=== PATIENT | female | born 1995 | race Two or more races ===

== ENCOUNTER 2019-09-03 21:55 | Observation (INO) | payer OTHER ==
[2019-09-03] MEDS ORDERED: SODIUM CHLORIDE 1,000 ML IV STA (22:37)
[2019-09-03] MEDS ORDERED: ONDANSETRON 4 MG/2 ML VIAL IVPUSH ONE (22:38)
[2019-09-03] MEDS ORDERED: cloNIDine HCL 0.1 MG TABLET PO ONE (22:40)
[2019-09-03] MEDS ORDERED: cloNIDine HCL 0.1 MG TABLET ONE (23:22)
[2019-09-04] MEDS ORDERED: cloNIDine-TTS 0.1 MG/24 HRS PATCH.TDWK TD ONE (00:40)
[2019-09-04] MEDS ORDERED: ACETAMINOPHEN 1000 MG/100 ML VIAL (NON FORMULARY) IVPB ONE (00:49)
[2019-09-04 01:02] LABS: BASO % 0.2 % (0-2.0); HEMATOCRIT 46.5 % (32.4-45.2); HEMOGLOBIN 15.6 GM/dL (10.7-15.3); LYMPH % 10.4 % (8-40); MCH 28.3 pg (25.7-33.7); MCHC 33.5 g/dl (32.0-36.0); MEAN CELL VOLUME 84.5 fl (80-96); MEAN PLT VOLUME 9.9 fl (7.5-11.1); MONO % 4.2 % (3.8-10.2); NEUT % 85.2 % (42.8-82.8); PLATELET COUNT 281 K/MM3 (134-434); RBC 5.51 M/mm3 (3.60-5.2); RDW 14.8 % (11.6-15.6); WHITE BLOOD COUNT 10.2 K/mm3 (4.0-10.0)
[2019-09-04 01:37] LABS: ALBUMIN 4.9 g/dl (3.4-5.0); BILIRUBIN,TOTAL 0.7 mg/dL (0.2-1); BLOOD UREA NITROGEN 5.6 mg/dL (7-18); CREATININE 0.8 mg/dL (0.55-1.3); POTASSIUM 3.3 mmol/L (3.5-5.1); TOT PROT 9.5 g/dl (6.4-8.2)
[2019-09-04] MEDS ORDERED: POTASSIUM CHLORIDE TABS 20 MEQ TABLET.ER (FP) PO ONE ×5 (03:27→17:53)
[2019-09-04] MEDS ORDERED: LABETALOL HCL 200 MG TABLET (FP) PO ONE (04:32)
[2019-09-04] MEDS ORDERED: hydrALAZINE HCL 20 MG/ML VIAL IVPUSH ONE (04:38)
[2019-09-04] MEDS ORDERED: hydrALAZINE HCL 20 MG/ML VIAL ONE (05:31)
[2019-09-04] MEDS ORDERED: METOCLOPRAMIDE HCL INJECTION 10 MG/2 ML VIAL IVPUSH ONE (06:25)
[2019-09-04] MEDS ORDERED: METOCLOPRAMIDE HCL INJECTION 10 MG/2 ML VIAL ONE (06:26)
[2019-09-04 06:37] LABS: BASO % 0.2 % (0-2.0); HEMATOCRIT 41.8 % (32.4-45.2); HEMOGLOBIN 13.9 GM/dL (10.7-15.3); LYMPH % 10.2 % (8-40); MCHC 33.3 g/dl (32.0-36.0); MEAN CELL VOLUME 84.1 fl (80-96); MEAN PLT VOLUME 9.4 fl (7.5-11.1); MONO % 6.9 % (3.8-10.2); NEUT % 82.7 % (42.8-82.8); PLATELET COUNT 262 K/MM3 (134-434); RBC 4.97 M/mm3 (3.60-5.2); RDW 14.8 % (11.6-15.6); WHITE BLOOD COUNT 11.3 K/mm3 (4.0-10.0)
[2019-09-04 07:35] LABS: ALBUMIN 4.4 g/dl (3.4-5.0); ALK PHOS 112 U/L (45-117); ANION GAP 12 MMOL/L (8-16); BILIRUBIN,TOTAL 0.7 mg/dL (0.2-1); BLOOD UREA NITROGEN 6.1 mg/dL (7-18); CALCIUM 9.2 mg/dL (8.5-10.1); CHLORIDE 98 mmol/L (98-107); CHOLESTEROL 201 mg/dL (50-200); CO2 23 mmol/L (21-32); CREATININE 0.8 mg/dL (0.55-1.3); GLUCOSE,RANDOM 151 mg/dL (74-106); HDL CHOLESTEROL 80 mg/dL (40-60); LDL CHOLESTEROL (ONLY SJRH) 110 mg/dL (5-100); MAGNESIUM 2.1 mg/dL (1.8-2.4); PHOSPHOROUS 3.3 mg/dL (2.5-4.9); POTASSIUM 3.5 mmol/L (3.5-5.1); SGOT/AST 12 U/L (15-37); SGPT/ALT 19 U/L (13-61); SODIUM 133 mmol/L (136-145); TOT PROT 8.1 g/dl (6.4-8.2); TRIGLYCERIDES 62 mg/dL (0-150)
[2019-09-04] MEDS ORDERED: KCL 10 MEQ IVPB 10 MEQ/100 ML INFUS.BAG IVPB ONE (08:13)
[2019-09-04] MEDS: KCL 10 MEQ IVPB 10 MEQ/100 ML INFUS.BAG IVPB SCH ×3 (08:20→10:00)
[2019-09-04] MEDS ORDERED: cloNIDine HCL 0.1 MG TABLET PO PRN (10:00)
[2019-09-04] MEDS ORDERED: HYDROCHLOROTHIAZIDE 12.5 MG CAPSULE (FP) PO SCH (10:00)
[2019-09-04] MEDS ORDERED: cloNIDine-TTS 0.3 MG /24 HRS PATCH.TDWK TD SCH (10:00)
[2019-09-04] MEDS ORDERED: METHADONE HCL 10 MG TABLET PO ONE ×2 (10:00→17:23)
[2019-09-04] MEDS ORDERED: METHADONE HCL 10 MG TABLET ONE ×2 (10:15→18:31)
[2019-09-04] MEDS ORDERED: FOLIC ACID 1 MG TABLET (FP) ONE (10:53)
[2019-09-04] MEDS ORDERED: THIAMINE HCL 100 MG TABLET (FP) ONE (10:53)
[2019-09-04] MEDS ORDERED: ENOXAPARIN NA (PORCINE) 40 MG/0.4 ML DISP.SYRIN SQ ONE (10:53)
[2019-09-04] MEDS: ENOXAPARIN NA (PORCINE) 40 MG/0.4 ML DISP.SYRIN SQ SCH (11:02)
[2019-09-04] MEDS: FOLIC ACID 1 MG TABLET (FP) PO SCH (11:02)
[2019-09-04] MEDS: THIAMINE HCL 100 MG TABLET (FP) PO SCH (11:02)
[2019-09-04] MEDS: MULTIVITAMINS (DAILY MVI) TABLET (FP) PO SCH (11:02)
[2019-09-04 12:55] LABS: HIV INTERPRETATION NEGATIVE (NEGATIVE)
[2019-09-04] MEDS ORDERED: amLODIPine BESYLATE 5 MG TABLET (FP) ONE (14:25)
[2019-09-04] MEDS ORDERED: ACETAMINOPHEN 325 MG TABLET (FP) ONE (14:26)
[2019-09-04] MEDS: amLODIPine BESYLATE 10 MG TABLET (FP) PO SCH (14:31)
[2019-09-04] MEDS: ACETAMINOPHEN 500 MG TABLET (FP) PO PRN (14:31)
[2019-09-04] MEDS ORDERED: hydrALAZINE HCL 10 MG TABLET PO ONE (18:22)
[2019-09-04] MEDS ORDERED: FAMOTIDINE 20 MG TABLET ONE (18:34)
[2019-09-04] MEDS: FAMOTIDINE 20 MG TABLET PO PRN (18:38)
[2019-09-04] MEDS ORDERED: hydrALAZINE HCL 10 MG TABLET PO SCH (22:00)
[2019-09-04] MEDS ORDERED: LISINOPRIL 20 MG TABLET PO SCH (22:00)
[2019-09-04] MEDS ORDERED: LISINOPRIL 20 MG TABLET ONE (22:07)
[2019-09-05] MEDS: FAMOTIDINE 20 MG TABLET PO PRN (02:29)
[2019-09-05] MEDS: ACETAMINOPHEN 500 MG TABLET (FP) PO PRN ×2 (02:29→17:56)
[2019-09-05] MEDS ORDERED: ACETAMINOPHEN 325 MG TABLET (FP) ONE (02:30)
[2019-09-05] MEDS ORDERED: FAMOTIDINE 20 MG TABLET ONE (02:31)
[2019-09-05] MEDS ORDERED: MAGNESIUM SULF 50% (8.12 MEQ/2 ML-1 GM VIAL) IVPB ONE (06:04)
[2019-09-05] MEDS: ONDANSETRON 4 MG/2 ML VIAL IVPUSH PRN ×2 (06:39→22:50)
[2019-09-05] MEDS: hydrALAZINE HCL 10 MG TABLET PO SCH ×2 (08:14→14:32)
[2019-09-05] MEDS ORDERED: METHADONE HCL 10 MG TABLET ONE ×2 (09:14→14:30)
[2019-09-05] MEDS ORDERED: METHADONE HCL 5 MG TABLET ONE (09:14)
[2019-09-05] MEDS: SODIUM CHLORIDE 1,000 ML IV SCH (09:23)
[2019-09-05] MEDS ORDERED: METHADONE HCL 5 MG TABLET PO ONE (10:00)
[2019-09-05 10:34] LABS: HEMATOCRIT 45.4 % (32.4-45.2); HEMOGLOBIN 14.9 GM/dL (10.7-15.3); MCHC 32.8 g/dl (32.0-36.0); MEAN CELL VOLUME 85.4 fl (80-96); MEAN PLT VOLUME 9.4 fl (7.5-11.1); PLATELET COUNT 257 K/MM3 (134-434); RBC 5.31 M/mm3 (3.60-5.2); RDW 14.5 % (11.6-15.6); WHITE BLOOD COUNT 12.9 K/mm3 (4.0-10.0)
[2019-09-05] MEDS ORDERED: ENOXAPARIN NA (PORCINE) 40 MG/0.4 ML DISP.SYRIN SQ ONE (10:41)
[2019-09-05] MEDS ORDERED: FOLIC ACID 1 MG TABLET (FP) ONE (10:41)
[2019-09-05] MEDS: amLODIPine BESYLATE 10 MG TABLET (FP) PO SCH (10:45)
[2019-09-05] MEDS: FOLIC ACID 1 MG TABLET (FP) PO SCH (10:45)
[2019-09-05] MEDS: ENOXAPARIN NA (PORCINE) 40 MG/0.4 ML DISP.SYRIN SQ SCH (10:45)
[2019-09-05 11:03] LABS: ALBUMIN 4.4 g/dl (3.4-5.0); BILIRUBIN,TOTAL 1.2 mg/dL (0.2-1); BLOOD UREA NITROGEN 11.3 mg/dL (7-18); CALCIUM 9.1 mg/dL (8.5-10.1); CREATININE 0.9 mg/dL (0.55-1.3); MAGNESIUM 2.7 mg/dL (1.8-2.4); PHOSPHOROUS 3.2 mg/dL (2.5-4.9); POTASSIUM 3.2 mmol/L (3.5-5.1); TOT PROT 8.1 g/dl (6.4-8.2)
[2019-09-05] MEDS ORDERED: THIAMINE HCL 100 MG TABLET (FP) ONE (11:13)
[2019-09-05] MEDS ORDERED: MULTIVITAMINS (DAILY MVI) TABLET (FP) ONE (11:13)
[2019-09-05] MEDS: MULTIVITAMINS (DAILY MVI) TABLET (FP) PO SCH (11:25)
[2019-09-05] MEDS: THIAMINE HCL 100 MG TABLET (FP) PO SCH (11:25)
[2019-09-05] MEDS ORDERED: POTASSIUM CHLORIDE TABS 20 MEQ TABLET.ER (FP) PO ONE ×2 (11:58→14:30)
[2019-09-05] MEDS ORDERED: SODIUM CHLORIDE 1,000 ML with POTASSIUM CHLORIDE 20 MEQ IVPB SCH (12:00)
[2019-09-05] MEDS ORDERED: SODIUM CHLORIDE 0.9%/KCL 20 MEQ/1,000 ML INFUS.BAG IV SCH ×2 (12:26→13:13)
[2019-09-05 13:17] LABS: ANISOCYTOSIS 0; MACROCYTOSIS 0; PLATELET ESTIMATE NORMAL
[2019-09-05] MEDS ORDERED: METHADONE HCL 10 MG TABLET PO ONE (13:31)
[2019-09-05] MEDS ORDERED: MELATONIN 5 MG TABLETS PO ONE (14:19)
[2019-09-05] MEDS ORDERED: MELATONIN 5 MG TABLETS ONE (14:30)
[2019-09-05] MEDS ORDERED: POTASSIUM CHLORIDE ORAL LIQUID 20 MEQ/15 ML PO ONE (14:39)
[2019-09-05] MEDS ORDERED: LISINOPRIL 20 MG TABLET ONE (15:49)
[2019-09-05] MEDS: LISINOPRIL 20 MG TABLET PO SCH (15:52)
[2019-09-05] MEDS ORDERED: BISMUTH SUBSALICYLATE 524 MG/30 ML UD PO PRN (16:16)
[2019-09-05] MEDS ORDERED: MAGNESIUM CITRATE 300 ML BOTTLE PO PRN (16:16)
[2019-09-05] MEDS ORDERED: ONDANSETRON *ODT* 4 MG TABLET SL ONE (16:16)
[2019-09-05] MEDS ORDERED: IBUPROFEN 400 MG TABLET (FP) PO PRN (16:16)
[2019-09-05] MEDS ORDERED: ACETAMINOPHEN 325 MG TABLET (FP) PO PRN ×2 (16:16)
[2019-09-05] MEDS ORDERED: MENTHOL/PHENOL 1 EACH UD MM PRN (16:16)
[2019-09-05] MEDS ORDERED: MAG HYDROX/AL HYDROX/SIMETH 30 ML UNIT-DOSE CUP PO PRN (16:16)
[2019-09-05] MEDS ORDERED: MAGNESIUM HYDROX 2400MG/30ML ORAL SUSPENSION 30 ML CUP PO PRN (16:16)
[2019-09-05] MEDS ORDERED: PRENATAL VITAMINS W/ FOLIC ACID TABLET (FP) PO SCH (16:30)
[2019-09-05] MEDS ORDERED: ACETAMINOPHEN 500 MG TABLET (FP) ONE (17:52)
[2019-09-05] MEDS ORDERED: hydrOXYzine PAMOATE 25 MG CAPSULE (FP) PO SCH (18:00)
[2019-09-05] MEDS ORDERED: IBUPROFEN 400 MG TABLET (FP) PO ONE (18:50)
[2019-09-05] MEDS: MELATONIN 5 MG TABLETS PO SCH (22:05)
[2019-09-05] MEDS: hydrALAZINE HCL 25 MG TABLET (FP) PO SCH (22:13)
[2019-09-05 23:50] VITALS: BMI 22.3
[2019-09-06] MEDS: hydrOXYzine PAMOATE 25 MG CAPSULE (FP) PO PRN ×4 (00:23→18:29)
[2019-09-06 05:01] LABS: PH,URINE 7.5 (5.0-8.0); URINE APPEARANCE CLOUDY; URINE BILIRUBIN NEGATIVE (NEGATIVE); URINE COLOR YELLOW; URINE GLUCOSE (UA) NEGATIVE (NEGATIVE); URINE KETONE 2+ (NEGATIVE); URINE LEUK ESTERASE NEGATIVE (NEGATIVE); URINE NITRITE NEGATIVE (NEGATIVE); URINE PROTEIN NEGATIVE (NEGATIVE)
[2019-09-06 05:09] LABS: COCAINE, UR NEGATIVE ng/ml (CUTOFF=300); OPIATES, URI NEGATIVE ng/ml (CUTOFF=300); PHENCYCLIDINE,URINE NEGATIVE ng/ml (CUTOFF=25); URINE AMPHETAMINES NEGATIVE ng/ml (CUTOFF=500); URINE BARBITURATES NEGATIVE ng/ml (CUTOFF=200); URINE BENZODIAZEPINES NEGATIVE ng/ml (CUTOFF=200)
[2019-09-06 05:20] LABS: METHADONE, UR POSITIVE ng/ml (CUTOFF=300)
[2019-09-06] MEDS: hydrALAZINE HCL 25 MG TABLET (FP) PO SCH ×3 (05:36→22:30)
[2019-09-06] MEDS: ACETAMINOPHEN 500 MG TABLET (FP) PO PRN (05:43)
[2019-09-06] MEDS ORDERED: PT OWN MED DRAWER 7, Y5N ONE ×2 (08:03→09:13)
[2019-09-06 08:09] LABS: BASO % 0.4 % (0-2.0); EOS % 0.1 % (0-4.5); HEMATOCRIT 43.7 % (32.4-45.2); HEMOGLOBIN 14.6 GM/dL (10.7-15.3); LYMPH % 21.9 % (8-40); MCH 28.4 pg (25.7-33.7); MCHC 33.5 g/dl (32.0-36.0); MEAN CELL VOLUME 84.7 fl (80-96); MEAN PLT VOLUME 9.4 fl (7.5-11.1); NEUT % 68.6 % (42.8-82.8); PLATELET COUNT 242 K/MM3 (134-434); RBC 5.15 M/mm3 (3.60-5.2); RDW 14.6 % (11.6-15.6); WHITE BLOOD COUNT 10.4 K/mm3 (4.0-10.0)
[2019-09-06 08:33] LABS: ALBUMIN 4.1 g/dl (3.4-5.0); BILIRUBIN,TOTAL 1.5 mg/dL (0.2-1); BLOOD UREA NITROGEN 8.9 mg/dL (7-18); CALCIUM 8.6 mg/dL (8.5-10.1); CREATININE 0.7 mg/dL (0.55-1.3); MAGNESIUM 2.4 mg/dL (1.8-2.4); PHOSPHOROUS 2.4 mg/dL (2.5-4.9); POTASSIUM 3.7 mmol/L (3.5-5.1); TOT PROT 7.4 g/dl (6.4-8.2)
[2019-09-06] MEDS ORDERED: METHADONE HCL 10 MG TABLET PO ONE ×2 (10:00)
[2019-09-06] MEDS: amLODIPine BESYLATE 10 MG TABLET (FP) PO SCH (10:17)
[2019-09-06] MEDS: FOLIC ACID 1 MG TABLET (FP) PO SCH (10:17)
[2019-09-06] MEDS: LISINOPRIL 20 MG TABLET PO SCH (10:17)
[2019-09-06] MEDS: MULTIVITAMINS (DAILY MVI) TABLET (FP) PO SCH (10:17)
[2019-09-06] MEDS: ENOXAPARIN NA (PORCINE) 40 MG/0.4 ML DISP.SYRIN SQ SCH (10:17)
[2019-09-06] MEDS: THIAMINE HCL 100 MG TABLET (FP) PO SCH (10:18)
[2019-09-06] MEDS: SODIUM CHLORIDE 1,000 ML IV SCH (10:24)
[2019-09-06] MEDS: METHOCARBAMOL 500 MG TABLET PO PRN (18:29)
[2019-09-06] MEDS ORDERED: TRIMETHOBENZAMIDE HCL 200MG/2ML INJ IM ONE (19:25)
[2019-09-06] MEDS: MELATONIN 5 MG TABLETS PO SCH (22:30)
[2019-09-07] MEDS: METHOCARBAMOL 500 MG TABLET PO PRN (03:17)
[2019-09-07] MEDS ORDERED: PT OWN MED DRAWER 7, Y5N ONE (03:17)
[2019-09-07] MEDS ORDERED: METHADONE HCL 5 MG TABLET PO ONE ×2 (06:00)
[2019-09-07] MEDS: hydrALAZINE HCL 25 MG TABLET (FP) PO SCH (06:19)
[2019-09-07 08:57] VITALS: TEMP 98
[2019-09-07] MEDS: FOLIC ACID 1 MG TABLET (FP) PO SCH (09:15)
[2019-09-07] MEDS: amLODIPine BESYLATE 10 MG TABLET (FP) PO SCH (09:16)
[2019-09-07] MEDS: ENOXAPARIN NA (PORCINE) 40 MG/0.4 ML DISP.SYRIN SQ SCH (09:16)
[2019-09-07] MEDS: MULTIVITAMINS (DAILY MVI) TABLET (FP) PO SCH (09:17)
[2019-09-07] MEDS: LISINOPRIL 20 MG TABLET PO SCH (09:17)
[2019-09-07] MEDS: THIAMINE HCL 100 MG TABLET (FP) PO SCH (09:17)
[2019-09-07 12:06] LABS: ALBUMIN 3.8 g/dl (3.4-5.0); BILIRUBIN,TOTAL 0.7 mg/dL (0.2-1); CALCIUM 8.7 mg/dL (8.5-10.1); POTASSIUM 3.5 mmol/L (3.5-5.1); TOT PROT 6.9 g/dl (6.4-8.2)
[2019-09-07 12:20] VITALS: BP 101/60; PULSE 93
[2019-09-07 12:34] LABS: BILIRUBIN,DIRECT 0.2 mg/dL (0.0-0.2)
[2019-09-07] MEDS: ACETAMINOPHEN 500 MG TABLET (FP) PO PRN (12:57)
[2019-09-08] MEDS ORDERED: METHADONE HCL 10 MG TABLET PO ONE (10:00)
[2019-09-09] MEDS ORDERED: METHADONE HCL 5 MG TABLET PO ONE (10:00)
== END 2019-09-07 13:25 | disposition short-term general hospital (02) ==
LOC: JER 21:55 → INTOOBSV 09-04 04:17 → JERBED 09-04 04:17 → J4S 09-05 20:48
PROVIDERS: ADMIT Internal Medicine; ATTEND Internal Medicine
PROC: 3E023GC Introduction of Other Therapeutic Substance into Muscle, Percutaneous Approach (ICD-10-PCS; principal; 2019-09-04)
PROC: 3E033GC Introduction of Other Therapeutic Substance into Peripheral Vein, Percutaneous Approach (ICD-10-PCS; 2019-09-04)
PROC: 3E0337Z Introduction of Electrolytic and Water Balance Substance into Peripheral Vein, Percutaneous Approach (ICD-10-PCS; 2019-09-04)
DX: I16.0 Hypertensive urgency (principal); F11.23 Opioid dependence with withdrawal; F19.10 Other psychoactive substance abuse, uncomplicated; D72.829 Elevated white blood cell count, unspecified; Z91.19 Patient's noncompliance with other medical treatment and regimen; Z29.9 Encounter for prophylactic measures, unspecified; Z72.0 Tobacco use
CPT/HCPCS: 36415; 70450-TC; 71045-TC-FY; 74176-TC; 76775-TC; 80053; 80061; 80307; 81003; 82248; 83036; 83690; 83721; 83735; 84100; 84484; 84703; 85025; 85027; 86780; 87086; 87389; 93005; 93010; 93306-TC; 93970-TC; 96361; 96372; 96374; 96375; 99285-25; G0378; U0003

== ENCOUNTER 2019-09-07 13:34 | Inpatient (IN) | payer OTHER ==
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
[2019-09-07] MEDS ORDERED: MAG HYDROX/AL HYDROX/SIMETH 30 ML UNIT-DOSE CUP PO PRN (13:52)
[2019-09-07] MEDS ORDERED: NALOXONE HCL 0.4 MG/ML VIAL IM PRN (13:52)
[2019-09-07] MEDS ORDERED: NICOTINE POLACRILEX 2 MG GUM BUC PRN (13:52)
[2019-09-07] MEDS ORDERED: ACETAMINOPHEN 325 MG TABLET (FP) PO PRN (13:52)
[2019-09-07] MEDS ORDERED: IBUPROFEN 400 MG TABLET (FP) PO PRN (13:52)
[2019-09-07] MEDS ORDERED: MAGNESIUM CITRATE 300 ML BOTTLE PO PRN (13:52)
[2019-09-07] MEDS ORDERED: BISMUTH SUBSALICYLATE 524 MG/30 ML UD PO PRN (13:52)
[2019-09-07] MEDS ORDERED: MAGNESIUM HYDROX 2400MG/30ML ORAL SUSPENSION 30 ML CUP PO PRN (13:52)
[2019-09-07] MEDS ORDERED: cloNIDine HCL 0.1 MG TABLET PO PRN (13:52)
[2019-09-07] MEDS ORDERED: MENTHOL/PHENOL 1 EACH UD MM PRN (13:52)
[2019-09-07 14:12] VITALS: BMI 23.1
[2019-09-07] MEDS: METHOCARBAMOL 500 MG TABLET PO PRN (18:20)
[2019-09-07] MEDS: THIAMINE HCL 100 MG TABLET (FP) PO SCH (22:22)
[2019-09-07] MEDS: MELATONIN 5 MG TABLETS PO SCH (22:22)
[2019-09-07] MEDS: hydrALAZINE HCL 25 MG TABLET (FP) PO SCH (22:24)
[2019-09-08] MEDS: ACETAMINOPHEN 325 MG TABLET (FP) PO PRN ×2 (02:36→23:38)
[2019-09-08] MEDS ORDERED: TRIMETHOBENZAMIDE HCL 200MG/2ML INJ IM PRN (06:31)
[2019-09-08] MEDS: hydrALAZINE HCL 25 MG TABLET (FP) PO SCH ×4 (06:48→22:46)
[2019-09-08] MEDS ORDERED: KETOROLAC TROMETHAMINE 15 MG/ML VIAL IM PRN (07:16)
[2019-09-08] MEDS: amLODIPine BESYLATE 10 MG TABLET (FP) PO SCH (09:07)
[2019-09-08] MEDS: LISINOPRIL 20 MG TABLET (FP) PO SCH (09:07)
[2019-09-08] MEDS ORDERED: hydrALAZINE HCL 25 MG TABLET (FP) PO ONE (09:08)
--- NOTE | 2019-09-08 09:10 | PN ---
[facility] COWS - Scale Resting Pulse: 2= WA 101-120 Sweatin= No chills or Flushing Restless Observation: 0= Sits Still Pupil Size: 0= Normal to Room Light Bone or Joint Aches: 0= None Runny Nose/ Eye Tearin= None GI Upset > 30mins: 5=Frequent Vomit/Diarrhea Tremor Observation of Outstretched Hands: 0= None Yawning Observation: 0= None Anxiety or Irritability: 0= None Goose Flesh Skin: 0=Smooth Skin COWS Score: 7 [facility] Progress Note (SOAP) Subjective: apresoline not given around 7 am today bp 150/98 one dose of apresoline now 24 years old female transferred from medical unit to opiate detox unit admitted on 09/07/19 for opiate withdrawal sx management treating with methadone detox regiment Ms fontana was treated at medical unit for fever abdominal pain and bp elevation from 09/03/19 to 09/07/19 Vital Signs - 24 hr 09/07/19 09/07/19 09/07/19 14:09 16:36 20:50 Temperature 97.1 F L 97.7 F 97.8 F Pulse Rate 94 H 114 H 104 H Respiratory 16 16 16 Rate Blood Pressure 97/58 L 106/68 102/69 O2 Sat by Pulse 100 Oximetry (%) 09/08/19 09/08/19 09/08/19 00:30 03:30 06:24 Temperature 97.6 F Pulse Rate 103 H Respiratory 18 18 18 Rate Blood Pressure 153/93 O2 Sat by Pulse 99 Oximetry (%) 09/08/19 08:35 Temperature 97.5 F L Pulse Rate 118 H Respiratory 18 Rate Blood Pressure 150/98 O2 Sat by Pulse Oximetry (%) bp elevation resume apresoline amlodipin lisinopril discontinue motrin pepecid 20 mg po bid initiated carafate 1 gram x 1 around 2 pm today Objective: 09/08/19 11:27 lab see Medical unit result detox lab pending Assessment: 09/08/19 11:28 opiate withdrawal Plan: methadone regiment
[2019-09-08] MEDS: PRENATAL VITAMINS W/ FOLIC ACID TABLET (FP) PO SCH (09:30)
[2019-09-08] MEDS: NICOTINE 7 MG/24 HOURS TOPICAL PATCH TD SCH (09:30)
[2019-09-08] MEDS ORDERED: METHADONE HCL 5 MG TABLET (FOR DETOX USE ONLY) PO ONE (10:00)
[2019-09-08] MEDS: FAMOTIDINE 20 MG TABLET PO SCH ×2 (11:38→22:46)
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
[2019-09-08 11:43] LABS: HEMATOCRIT 42.8 % (32.4-45.2); HEMOGLOBIN 14.1 GM/dL (10.7-15.3); MCH 28.4 pg (25.7-33.7); MEAN PLT VOLUME 9.6 fl (7.5-11.1); PLATELET COUNT 280 K/MM3 (134-434); RBC 4.97 M/mm3 (3.60-5.2); RDW 14.3 % (11.6-15.6); WHITE BLOOD COUNT 9.4 K/mm3 (4.0-10.0)
[2019-09-08 11:59] LABS: ALBUMIN 4.2 g/dl (3.4-5.0); BILIRUBIN,TOTAL 0.7 mg/dL (0.2-1); BLOOD UREA NITROGEN 11.3 mg/dL (7-18); CALCIUM 8.8 mg/dL (8.5-10.1); CREATININE 0.8 mg/dL (0.55-1.3); POTASSIUM 3.7 mmol/L (3.5-5.1); TOT PROT 7.4 g/dl (6.4-8.2)
[2019-09-08] MEDS ORDERED: SUCRALFATE 1 GM TABLET (FP) PO ONE (14:00)
[2019-09-08] MEDS ORDERED: TRIMETHOBENZAMIDE HCL 200MG/2ML INJ IM SCH (14:15)
[2019-09-08] MEDS ORDERED: TRIMETHOBENZAMIDE HCL 200MG/2ML INJ IM ONE (15:00)
[2019-09-08] MEDS: METHOCARBAMOL 500 MG TABLET PO PRN (21:37)
[2019-09-08] MEDS: THIAMINE HCL 100 MG TABLET (FP) PO SCH (22:46)
[2019-09-08] MEDS: MELATONIN 5 MG TABLETS PO SCH (22:46)
[2019-09-09] MEDS ORDERED: METHADONE HCL 5 MG TABLET (FOR DETOX USE ONLY) PO ONE (06:00)
[2019-09-09] MEDS: hydrALAZINE HCL 25 MG TABLET (FP) PO SCH (06:55)
[2019-09-09 09:12] VITALS: BP 126/87; PULSE 108; TEMP 97.5
[2019-09-09] MEDS: amLODIPine BESYLATE 10 MG TABLET (FP) PO SCH (09:50)
[2019-09-09] MEDS: LISINOPRIL 20 MG TABLET (FP) PO SCH (09:50)
[2019-09-09] MEDS: PRENATAL VITAMINS W/ FOLIC ACID TABLET (FP) PO SCH (09:50)
[2019-09-09] MEDS: FAMOTIDINE 20 MG TABLET PO SCH (09:51)
[2019-09-09] MEDS: NICOTINE 7 MG/24 HOURS TOPICAL PATCH TD SCH (09:51)
[2019-09-09] MEDS ORDERED: METHADONE HCL 10 MG TABLET (FOR DETOX USE ONLY) PO ONE (10:00)
--- NOTE | 2019-09-09 10:42 | DS ---
[facility] Detox Discharge Summary Admission Date: 09/07/19 Discharge Date: 09/09/19 - History Present History: Opioid Dependence Additional Comments: 24 years old female admitted on 09/07/19 for opiate withdrawal sx management treated with methadone detox regiment ms fontana does not wish to be seen by a psychiatrist "they are not giving me anything" ms fontana was treated at medical unit for abdominal pain and vomiting from 09/03/19 to 09/07/19 medically stabled to [facility] for opiate withdrawal sx management ms fontana has completed the methadone regiment and is tolerated well ms fontana experienced abdominal pain and vomiting throughout the opiate detox toradol for abdominal pain management and tigan IM for vomiting ms fontana is alert oriented x 3 ambulating steady gaits from room to nurse station to counselor's room Vital Signs - 24 hr 09/08/19 09/08/19 09/08/19 12:40 16:50 20:59 Temperature 97.7 F 97.5 F L 99.5 F Pulse Rate 104 H 104 H 123 H Respiratory 18 16 16 Rate Blood Pressure 157/95 127/70 157/94 O2 Sat by Pulse 100 96 Oximetry (%) 09/08/19 09/09/19 09/09/19 22:40 05:55 08:42 Temperature 96.9 F L 98.0 F 97.5 F L Pulse Rate 96 H 108 H Respiratory 18 16 Rate Blood Pressure 100/69 126/87 O2 Sat by Pulse 98 Oximetry (%) denies dizziness denies palpitation oral mucosa pink moist speech clearly coherently prefers to stay in detox or transferred to [facility] continue toradol for pain and tigan for vomiting suggesting return to medical unit for abdominal pain and vomiting re evaluation ms fontana prefers to go to opiate recovery rehab facility today counselor presents an opportunity of [facility] in patient opiate recovery ms fontana agrees to go to [facility] transportation around 1030 today ms fontana presents that [facility] better [facility] for her treatment team met with the patient discussing continuity of care as [facility] for opiate recovery regardless [facility] cardiac s1s2 sinus tachycardia ekg indicated biatrial enlargement ms denies chest pain no dizziness no shortness of breath discussing smoking cessation respiratory clear lung sounds bilaterally on auscultation extremities full range of motion Pertinent Past History: time for discharge 58 minutes - Physical Exam Results Vital Signs: Vital Signs Temperature 97.5 F L 09/09/19 08:42 Pulse Rate 108 H 09/09/19 08:42 Respiratory Rate 16 09/09/19 08:42 Blood Pressure 126/87 09/09/19 08:42 O2 Sat by Pulse Oximetry (%) 98 09/09/19 05:55 Pertinent Admission Physical Exam Findings: opiate withdrawal Laboratory Tests 09/08/19 09/08/19 07:30 07:30 WBC 9.4 RBC 4.97 Hgb 14.1 Hct 42.8 MCV 86.0 MCH 28.4 MCHC 33.0 RDW 14.3 Plt Count 280 MPV 9.6 Sodium 134 L Potassium 3.7 Chloride 101 Carbon Dioxide 23 Anion Gap 10 BUN 11.3 Creatinine 0.8 Est GFR (CKD-EPI)AfAm 117.93 Est GFR (CKD-EPI)NonAf 101.75 Random Glucose 123 H Calcium 8.8 Total Bilirubin 0.7 AST 16 ALT 18 Alkaline Phosphatase 118 H Total Protein 7.4 Albumin 4.2 - Treatment Hospital Course: Detox Protocol Followed, Detoxed Safely (prolong qtc tolerted methadone well throughout the detox process), Responded well (discussing medication assisted treatment program picking up narcan from pharmacy upon discharge from in patient substance abuse facility), Discharged Condition Good (less nausea vomiting less frequent abdomen pain ms fontana prefers to stay in detox [facility] for abdominal pain), Rehab Referral Accepted (suggesting ms fontana return to ER for further abdominal pain and nausea vomiting re evaluation ms fontana prefers to stay in [facility] continue toradol treatment ms fontana agrees to go to [facility] inpatient opiate rehab 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 today ms fontana voice aftercare preference to [facility] discussing the continuity of care as opiate abuse recovery) Patient has Accepted [facility] - Medication Discharge Medications: Ambulatory Orders Acetaminophen [Tylenol .Extra-Strength -] 1,000 mg PO Q6H PRN tablet 09/06/19 Amlodipine Besylate [Norvasc -] 10 mg PO DAILY tablet 09/06/19 Bismuth Subsalicylate [Pepto-Bismol -] 524 mg PO Q1H PRN ud 09/06/19 Famotidine [Pepcid -] 20 mg PO DAILY PRN tablet 09/06/19 Folic Acid - 1 mg PO DAILY tablet 09/06/19 Ibuprofen [Motrin -] 400 mg PO Q6H PRN tablet 09/06/19 Lisinopril [Prinivil] 40 mg PO DAILY tablet 09/06/19 Mag Hydrox/Al Hydrox/Simeth [Mylanta Oral Suspension -] 30 ml PO Q6H PRN cup 09/06/19 Magnesium Citrate [Citroma -] 300 ml PO Q48H PRN bottle 09/06/19 Magnesium Hydrox 2400MG/30Ml [Milk of Magnesia -] 30 ml PO PRN PRN cup 09/06/19 Melatonin 5 mg PO HS tab 09/06/19 Menthol/Phenol [Cepastat Lozenge -] 1 each MM Q4H PRN ud 09/06/19 Methocarbamol [Robaxin -] 500 mg PO Q6H PRN tablet 09/06/19 Multivitamins [Multivit ([facility] Formulary)] 1 tab PO DAILY tab 09/06/19 Vitamins ([facility]) - 1 tab PO DAILY tablet 09/06/19 Thiamine HCl [Vitamin B1 -] 100 mg PO DAILY tablet 09/06/19 hydrALAZINE HCL [Apresoline -] 25 mg PO TID tablet 09/06/19 hydrOXYzine PAMOATE [Vistaril -] 25 mg PO Q4HWA capsule 09/06/19 Naloxone HCl [Narcan] 4 mg NS ASDIR PRN #1 spray 09/08/19 - Diagnosis (1) Abdominal pain with vomiting Status: Chronic (2) HTN (hypertension) Status: Chronic Qualifiers: Hypertension type: essential hypertension Qualified Code(s): I10 - Essential (primary) hypertension (3) Heroin withdrawal Status: Acute (4) Nicotine addiction Status: Acute Qualifiers: Nicotine product type: cigarettes Substance use status: in withdrawal Qualified Code(s): F17.213 - Nicotine dependence, cigarettes, with withdrawal - AMA Did Patient Leave Against Medical Advice: No
== END 2019-09-09 10:40 | disposition home or self-care (01) | DRG 773 ==
LOC: YASAS 13:34 → Y3N 13:51
PROVIDERS: ADMIT Allergy & Immunology; ATTEND Allergy & Immunology
PROC: HZ2ZZZZ Detoxification Services for Substance Abuse Treatment (ICD-10-PCS; principal; 2019-09-07)
DX: F11.23 Opioid dependence with withdrawal (principal); F17.213 Nicotine dependence, cigarettes, with withdrawal; I10 Essential (primary) hypertension; R10.9 Unspecified abdominal pain; R11.10 Vomiting, unspecified; J45.909 Unspecified asthma, uncomplicated; Z86.73 Personal history of transient ischemic attack (TIA), and cerebral infarction without residual deficits
CPT/HCPCS: 36415; 80053; 85027

== ENCOUNTER 2020-05-28 08:35 | Inpatient (IN) | payer OTHER ==
[2020-05-28] MEDS ORDERED: cloNIDine HCL 0.1 MG TABLET PO ONE (09:15)
[2020-05-28 16:33] VITALS: BMI 22.4
[2020-05-28] MEDS ORDERED: MAGNESIUM HYDROX 2400MG/30ML ORAL SUSPENSION 30 ML CUP PO PRN (16:33)
[2020-05-28] MEDS ORDERED: ACETAMINOPHEN 325 MG TABLET (FP) PO PRN ×3 (16:33→16:35)
[2020-05-28] MEDS ORDERED: MAG HYDROX/AL HYDROX/SIMETH 30 ML UNIT-DOSE CUP PO PRN (16:33)
[2020-05-28] MEDS ORDERED: MENTHOL/PHENOL 1 EACH UD MM PRN (16:33)
[2020-05-28] MEDS ORDERED: MAGNESIUM CITRATE 300 ML BOTTLE PO PRN (16:33)
[2020-05-28] MEDS ORDERED: NICOTINE POLACRILEX 2 MG GUM BUC PRN (16:33)
[2020-05-28] MEDS ORDERED: cloNIDine HCL 0.1 MG TABLET PO PRN (16:33)
[2020-05-28] MEDS ORDERED: BISMUTH SUBSALICYLATE 524 MG/30 ML UD PO PRN (16:33)
[2020-05-28] MEDS ORDERED: FAMOTIDINE 20 MG TABLET PO PRN (16:35)
[2020-05-28] MEDS ORDERED: METHOCARBAMOL 500 MG TABLET ONE (16:50)
[2020-05-28] MEDS ORDERED: hydrOXYzine PAMOATE 25 MG CAPSULE (FP) PO ONE (16:50)
[2020-05-28] MEDS ORDERED: METHADONE HCL 10 MG TABLET (FOR DETOX USE ONLY) PO ONE (17:00)
[2020-05-28] MEDS: METHOCARBAMOL 500 MG TABLET PO PRN (17:09)
[2020-05-28] MEDS: hydrOXYzine PAMOATE 25 MG CAPSULE (FP) PO SCH ×2 (17:09→21:01)
[2020-05-28] MEDS: PRENATAL VITAMINS W/ FOLIC ACID TABLET (FP) PO SCH (18:16)
[2020-05-28] MEDS: NICOTINE 14 MG/24 HOURS TOPICAL PATCH TD SCH (18:16)
[2020-05-28] MEDS: MELATONIN 5 MG TABLETS PO SCH (21:01)
[2020-05-28] MEDS: THIAMINE HCL 100 MG TABLET (FP) PO SCH (21:01)
[2020-05-28] MEDS: hydrALAZINE HCL 25 MG TABLET (FP) PO SCH (22:05)
[2020-05-29] MEDS: ONDANSETRON *ODT* 4 MG TABLET SL PRN ×2 (03:56→14:28)
[2020-05-29] MEDS: hydrOXYzine PAMOATE 25 MG CAPSULE (FP) PO SCH ×5 (05:42→22:14)
[2020-05-29] MEDS: hydrALAZINE HCL 25 MG TABLET (FP) PO SCH ×3 (05:42→22:14)
[2020-05-29] MEDS: IBUPROFEN 400 MG TABLET (FP) PO PRN ×2 (07:23→14:15)
[2020-05-29] MEDS ORDERED: METHADONE HCL 10 MG TABLET (FOR DETOX USE ONLY) ONE (09:08)
[2020-05-29] MEDS ORDERED: METHADONE HCL 5 MG TABLET (FOR DETOX USE ONLY) ONE (09:08)
[2020-05-29] MEDS: PRENATAL VITAMINS W/ FOLIC ACID TABLET (FP) PO SCH (09:20)
[2020-05-29] MEDS: amLODIPine BESYLATE 10 MG TABLET (FP) PO SCH (09:20)
[2020-05-29] MEDS: NICOTINE 14 MG/24 HOURS TOPICAL PATCH TD SCH (09:21)
[2020-05-29] MEDS: METHOCARBAMOL 500 MG TABLET PO PRN ×3 (09:21→19:59)
[2020-05-29] MEDS ORDERED: METHADONE (DETOX) 20 MG, METHADONE (DETOX) 5 MG PO ONE (10:00)
[2020-05-29] MEDS: LISINOPRIL 20 MG TABLET PO SCH (10:40)
[2020-05-29] MEDS ORDERED: METHYL SALICYLATE/MENTHOL OINT 30 GM TUBE TP PRN (20:19)
[2020-05-29] MEDS: MELATONIN 5 MG TABLETS PO SCH (22:14)
[2020-05-29] MEDS: THIAMINE HCL 100 MG TABLET (FP) PO SCH (22:14)
[2020-05-30] MEDS: ONDANSETRON *ODT* 4 MG TABLET SL PRN (01:07)
[2020-05-30] MEDS: hydrOXYzine PAMOATE 25 MG CAPSULE (FP) PO SCH ×5 (05:32→23:13)
[2020-05-30] MEDS: TRIMETHOBENZAMIDE HCL 200MG/2ML INJ IM PRN ×2 (07:34→17:26)
[2020-05-30] MEDS ORDERED: METHADONE HCL 10 MG TABLET (FOR DETOX USE ONLY) PO ONE (10:00)
[2020-05-30] MEDS: PRENATAL VITAMINS W/ FOLIC ACID TABLET (FP) PO SCH (10:14)
[2020-05-30] MEDS: NICOTINE 14 MG/24 HOURS TOPICAL PATCH TD SCH (10:15)
[2020-05-30] MEDS: amLODIPine BESYLATE 10 MG TABLET (FP) PO SCH (10:15)
[2020-05-30] MEDS: LISINOPRIL 20 MG TABLET PO SCH (10:15)
[2020-05-30] MEDS ORDERED: POTASSIUM CHLORIDE TABS 20 MEQ TABLET.ER (FP) PO ONE (11:15)
[2020-05-30] MEDS: IBUPROFEN 400 MG TABLET (FP) PO PRN (13:07)
[2020-05-30] MEDS: hydrALAZINE HCL 25 MG TABLET (FP) PO SCH ×3 (14:28→23:12)
[2020-05-30] MEDS: PARoxetine HCL 10 MG TABLET PO SCH (14:29)
[2020-05-30] MEDS: LIDOCAINE 5% TOPICAL PATCH TP SCH (15:33)
[2020-05-30] MEDS: METHOCARBAMOL 500 MG TABLET PO PRN (19:22)
[2020-05-30] MEDS: diazePAM 5 MG TABLET PO PRN ×2 (19:22→23:15)
[2020-05-30] MEDS: LIDOCAINE PATCH REMOVAL MC SCH (23:13)
[2020-05-30] MEDS: MELATONIN 5 MG TABLETS PO SCH (23:13)
[2020-05-30] MEDS: THIAMINE HCL 100 MG TABLET (FP) PO SCH (23:14)
[2020-05-31] MEDS: hydrALAZINE HCL 25 MG TABLET (FP) PO SCH ×3 (07:07→22:55)
[2020-05-31] MEDS: hydrOXYzine PAMOATE 25 MG CAPSULE (FP) PO SCH ×5 (07:12→22:56)
[2020-05-31] MEDS ORDERED: METHADONE HCL 10 MG TABLET (FOR DETOX USE ONLY) ONE (09:11)
[2020-05-31] MEDS ORDERED: METHADONE HCL 5 MG TABLET (FOR DETOX USE ONLY) ONE (09:11)
[2020-05-31] MEDS ORDERED: ONDANSETRON *ODT* 4 MG TABLET SL ONE (09:51)
[2020-05-31] MEDS ORDERED: DICYCLOMINE HCL 20 MG TABLET PO ONE (09:57)
[2020-05-31] MEDS ORDERED: cloNIDine HCL 0.1 MG TABLET PO PRN (09:59)
[2020-05-31] MEDS ORDERED: METHADONE (DETOX) 10 MG, METHADONE (DETOX) 5 MG PO ONE (10:00)
[2020-05-31] MEDS: NICOTINE 14 MG/24 HOURS TOPICAL PATCH TD SCH (10:11)
[2020-05-31] MEDS: LIDOCAINE 5% TOPICAL PATCH TP SCH (10:11)
[2020-05-31] MEDS: LISINOPRIL 20 MG TABLET PO SCH (10:12)
[2020-05-31] MEDS: amLODIPine BESYLATE 10 MG TABLET (FP) PO SCH (10:12)
[2020-05-31] MEDS: PARoxetine HCL 10 MG TABLET PO SCH (10:12)
[2020-05-31] MEDS: PRENATAL VITAMINS W/ FOLIC ACID TABLET (FP) PO SCH (10:12)
[2020-05-31] MEDS: FAMOTIDINE 20 MG TABLET PO SCH ×2 (10:12→22:55)
[2020-05-31 11:28] LABS: BASO % 0.3 % (0-2.0); EOS % 0.5 % (0-4.5); HEMATOCRIT 47.3 % (32.4-45.2); HEMOGLOBIN 15.7 GM/dL (10.7-15.3); LYMPH % 44.3 % (8-40); MCHC 33.2 g/dl (32.0-36.0); MEAN CELL VOLUME 84.4 fl (80-96); MEAN PLT VOLUME 9.5 fl (7.5-11.1); MONO % 7.1 % (3.8-10.2); NEUT % 47.8 % (42.8-82.8); PLATELET COUNT 337 K/MM3 (134-434); RBC 5.61 M/mm3 (3.60-5.2); RDW 14.2 % (11.6-15.6); WHITE BLOOD COUNT 9.5 K/mm3 (4.0-10.0)
[2020-05-31] MEDS: ATENOLOL 25 MG TABLET (FP) PO SCH ×3 (15:04→22:55)
[2020-05-31] MEDS: ONDANSETRON *ODT* 4 MG TABLET SL PRN (17:37)
[2020-05-31] MEDS: diazePAM 5 MG TABLET PO PRN (18:53)
[2020-05-31] MEDS ORDERED: TRIMETHOBENZAMIDE HCL 200MG/2ML INJ IM PRN (19:09)
[2020-05-31] MEDS: TRIMETHOBENZAMIDE HCL 200MG/2ML INJ IM PRN (19:25)
[2020-05-31] MEDS: LIDOCAINE PATCH REMOVAL MC SCH (22:54)
[2020-05-31] MEDS: MELATONIN 5 MG TABLETS PO SCH (22:57)
[2020-05-31] MEDS ORDERED: ALBUTEROL SO4 HFA INHALER IH PRN (23:27)
[2020-05-31] MEDS: THIAMINE HCL 100 MG TABLET (FP) PO SCH (23:34)
[2020-06-01] MEDS: hydrALAZINE HCL 25 MG TABLET (FP) PO SCH ×3 (07:10→23:11)
[2020-06-01] MEDS: hydrOXYzine PAMOATE 25 MG CAPSULE (FP) PO SCH ×5 (07:10→23:12)
[2020-06-01] MEDS ORDERED: METHADONE HCL 10 MG TABLET (FOR DETOX USE ONLY) PO ONE (10:00)
[2020-06-01] MEDS: amLODIPine BESYLATE 10 MG TABLET (FP) PO SCH (10:44)
[2020-06-01] MEDS: NICOTINE 14 MG/24 HOURS TOPICAL PATCH TD SCH (10:44)
[2020-06-01] MEDS: PRENATAL VITAMINS W/ FOLIC ACID TABLET (FP) PO SCH (10:44)
[2020-06-01] MEDS: LISINOPRIL 20 MG TABLET PO SCH (10:44)
[2020-06-01] MEDS: FAMOTIDINE 20 MG TABLET PO SCH ×2 (10:44→23:11)
[2020-06-01] MEDS: LIDOCAINE 5% TOPICAL PATCH TP SCH (10:44)
[2020-06-01] MEDS: PARoxetine HCL 10 MG TABLET PO SCH (10:44)
[2020-06-01] MEDS: ATENOLOL 25 MG TABLET (FP) PO SCH ×2 (10:44→23:11)
[2020-06-01] MEDS: diazePAM 5 MG TABLET PO PRN (18:20)
[2020-06-01] MEDS: THIAMINE HCL 100 MG TABLET (FP) PO SCH (23:11)
[2020-06-01] MEDS: MELATONIN 5 MG TABLETS PO SCH (23:11)
[2020-06-01] MEDS: LIDOCAINE PATCH REMOVAL MC SCH (23:12)
[2020-06-02] MEDS ORDERED: METHADONE HCL 5 MG TABLET (FOR DETOX USE ONLY) PO ONE (06:00)
[2020-06-02] MEDS: hydrALAZINE HCL 25 MG TABLET (FP) PO SCH ×2 (07:13→15:06)
[2020-06-02] MEDS: hydrOXYzine PAMOATE 25 MG CAPSULE (FP) PO SCH ×4 (07:14→18:10)
[2020-06-02] MEDS: PRENATAL VITAMINS W/ FOLIC ACID TABLET (FP) PO SCH (12:30)
[2020-06-02] MEDS: FAMOTIDINE 20 MG TABLET PO SCH (12:30)
[2020-06-02] MEDS: LISINOPRIL 20 MG TABLET PO SCH (12:30)
[2020-06-02] MEDS: amLODIPine BESYLATE 10 MG TABLET (FP) PO SCH (12:31)
[2020-06-02] MEDS: LIDOCAINE 5% TOPICAL PATCH TP SCH (12:31)
[2020-06-02] MEDS: NICOTINE 14 MG/24 HOURS TOPICAL PATCH TD SCH (12:31)
[2020-06-02] MEDS: PARoxetine HCL 10 MG TABLET PO SCH (12:32)
[2020-06-02] MEDS: ATENOLOL 25 MG TABLET (FP) PO SCH (12:33)
[2020-06-02 17:23] VITALS: BP 149/84; PULSE 83; TEMP 97.8
[2020-06-02] MEDS: METHOCARBAMOL 500 MG TABLET PO PRN (18:10)
== END 2020-06-02 07:40 | disposition other institution (70) | DRG 773 ==
LOC: YASAS 08:35 → Y6N 17:22
PROVIDERS: ADMIT Allergy & Immunology; ATTEND Allergy & Immunology
PROC: HZ2ZZZZ Detoxification Services for Substance Abuse Treatment (ICD-10-PCS; principal; 2020-05-28)
DX: F11.23 Opioid dependence with withdrawal (principal); F17.210 Nicotine dependence, cigarettes, uncomplicated; F25.9 Schizoaffective disorder, unspecified; F31.9 Bipolar disorder, unspecified; F41.9 Anxiety disorder, unspecified; D72.829 Elevated white blood cell count, unspecified; E87.6 Hypokalemia; I10 Essential (primary) hypertension; J45.909 Unspecified asthma, uncomplicated; R07.89 Other chest pain; R00.0 Tachycardia, unspecified; Z91.410 Personal history of adult physical and sexual abuse; Z56.0 Unemployment, unspecified
CPT/HCPCS: 36415; 84132; 85025; 86780; 93005; 93010; C9803; J0735; Q0162; U0003

== ENCOUNTER 2020-05-28 09:32 | Emergency (ER) | payer OTHER ==
[2020-05-28 09:45] VITALS: BP 173/105; PULSE 90; TEMP 98.9; BMI 23.1
[2020-05-28] MEDS ORDERED: ONDANSETRON 4 MG/2 ML VIAL IVPUSH ONE (09:55)
[2020-05-28] MEDS ORDERED: LACTATED RINGERS SOLUTION 1000 ML INFUS.BAG IV ONE (09:55)
[2020-05-28] MEDS ORDERED: ACETAMINOPHEN 1000 MG/100 ML VIAL (NON FORMULARY) IVPB ONE (09:56)
[2020-05-28] MEDS ORDERED: ACETAMINOPHEN INJECTION 100 ML IVPB ONE (10:08)
[2020-05-28] MEDS ORDERED: ONDANSETRON 4 MG/2 ML VIAL ONE (10:08)
[2020-05-28] MEDS ORDERED: METHADONE HCL 10 MG TABLET PO ONE (12:46)
[2020-05-28 12:48] LABS: BASO % 0.4 % (0-2.0); HEMATOCRIT 45.5 % (32.4-45.2); HEMOGLOBIN 15.4 GM/dL (10.7-15.3); LYMPH % 8.6 % (8-40); MCHC 33.8 g/dl (32.0-36.0); MEAN CELL VOLUME 82.9 fl (80-96); MONO % 4.4 % (3.8-10.2); NEUT % 86.6 % (42.8-82.8); PLATELET COUNT 340 K/MM3 (134-434); RBC 5.49 M/mm3 (3.60-5.2); RDW 14.1 % (11.6-15.6); WHITE BLOOD COUNT 13.8 K/mm3 (4.0-10.0)
[2020-05-28] MEDS ORDERED: METHADONE HCL 10 MG TABLET ONE (12:51)
[2020-05-28 13:04] LABS: CALCIUM 10.5 mg/dL (8.5-10.1); CHLORIDE 95 mmol/L (98-107); POTASSIUM 3.1 mmol/L (3.5-5.1); SODIUM 137 mmol/L (136-145)
[2020-05-28 13:05] LABS: ANION GAP 12 MMOL/L (8-16); CO2 30 mmol/L (21-32); MAGNESIUM 2.8 mg/dL (1.8-2.4)
[2020-05-28 13:06] LABS: URINE COLOR YELLOW
[2020-05-28 13:07] LABS: BLOOD UREA NITROGEN 8.2 mg/dL (7-18); GLUCOSE,RANDOM 139 mg/dL (74-106); PH,URINE 6.5 (5.0-8.0); URINE APPEARANCE CLOUDY; URINE BILIRUBIN NEGATIVE (NEGATIVE); URINE GLUCOSE (UA) NEGATIVE (NEGATIVE); URINE KETONE >=80 mg/dl (NEGATIVE); URINE LEUK ESTERASE NEGATIVE (NEGATIVE); URINE NITRITE NEGATIVE (NEGATIVE); URINE PROTEIN 1+ (NEGATIVE); URINE UROBILINOGEN 0.2 mg/dL (0.2-1.0)
[2020-05-28 13:08] LABS: EPI CELLS 117.2 /uL (0-25.1); HYALINE CASTS 4.88 /uL (0-3.1); URINE BACTERIA 2944.4 /uL (0-1359); URINE RBC 23.8 /uL (0-23.9); URINE WBC 140.2 /uL (0-25.8)
[2020-05-28 13:10] LABS: CREATININE 0.8 mg/dL (0.55-1.3); SGOT/AST 8 U/L (15-37); SGPT/ALT 18 U/L (13-61)
[2020-05-28] MEDS ORDERED: POTASSIUM CHLORIDE TABS 20 MEQ TABLET.ER (FP) PO ONE ×6 (13:10→13:25)
[2020-05-28 13:11] LABS: BILIRUBIN,TOTAL 0.7 mg/dL (0.2-1); TOT PROT 9.8 g/dl (6.4-8.2)
[2020-05-28 13:13] LABS: ALK PHOS 151 U/L (45-117)
== END 2020-05-28 15:45 | disposition short-term general hospital (02) ==
LOC: SUPCPDRO 09:32 → JER 09:32
DX: E86.0 Dehydration (principal); R42 Dizziness and giddiness; F11.90 Opioid use, unspecified, uncomplicated
CPT/HCPCS: 36415; 71045-TC-FY; 80053; 81003; 82550; 83735; 84484; 84703; 85025; 87086; 93005; 93010; 99284-25; J0131

== ENCOUNTER 2020-06-03 12:55 | Inpatient (IN) | payer OTHER ==
[2020-06-03 13:32] VITALS: TEMP 96.8; BMI 21.9
[2020-06-03] MEDS ORDERED: NICOTINE POLACRILEX 2 MG GUM BC PRN (17:04)
[2020-06-03] MEDS ORDERED: LOPERAMIDE HCL 2 MG CAPSULE PO PRN (17:04)
[2020-06-03] MEDS ORDERED: guaiFENesin 200 MG/10 ML 10 ML UNIT-DOSE CUPS PO PRN (17:04)
[2020-06-03] MEDS ORDERED: P-EPHED 60MG/TRIPROLIDI 2.5MG TABLET PO PRN (17:04)
[2020-06-03] MEDS ORDERED: MAG HYDROX/AL HYDROX/SIMETH 30 ML UNIT-DOSE CUP PO PRN (17:04)
[2020-06-03] MEDS ORDERED: IBUPROFEN 400 MG TABLET (FP) PO PRN (17:04)
[2020-06-03] MEDS ORDERED: MAGNESIUM CITRATE 300 ML BOTTLE PO PRN (17:04)
[2020-06-03] MEDS ORDERED: MAGNESIUM HYDROX 2400MG/30ML ORAL SUSPENSION 30 ML CUP PO PRN (17:04)
[2020-06-03] MEDS ORDERED: ACETAMINOPHEN 325 MG TABLET (FP) PO PRN (17:04)
[2020-06-03] MEDS ORDERED: FAMOTIDINE 20 MG TABLET PO PRN (17:07)
[2020-06-03] MEDS ORDERED: ALBUTEROL SO4 HFA INHALER IH PRN (17:07)
[2020-06-03] MEDS: hydrOXYzine PAMOATE 25 MG CAPSULE (FP) PO SCH ×2 (17:38→23:50)
[2020-06-03] MEDS: THIAMINE HCL 100 MG TABLET (FP) PO SCH (23:50)
[2020-06-03] MEDS: ATENOLOL 25 MG TABLET (FP) PO SCH (23:50)
[2020-06-03] MEDS: MELATONIN 5 MG TABLETS PO SCH (23:50)
[2020-06-03] MEDS: hydrALAZINE HCL 25 MG TABLET (FP) PO SCH (23:50)
[2020-06-04] MEDS: hydrALAZINE HCL 25 MG TABLET (FP) PO SCH ×3 (07:50→21:31)
[2020-06-04] MEDS: hydrOXYzine PAMOATE 25 MG CAPSULE (FP) PO SCH ×5 (07:50→21:32)
[2020-06-04] MEDS ORDERED: amLODIPine BESYLATE 10 MG TABLET (FP) PO SCH (10:00)
[2020-06-04] MEDS ORDERED: NICOTINE 7 MG/24 HOURS TOPICAL PATCH TD SCH (10:00)
[2020-06-04] MEDS ORDERED: LISINOPRIL 20 MG TABLET PO SCH (10:00)
[2020-06-04] MEDS ORDERED: PRENATAL VITAMINS W/ FOLIC ACID TABLET (FP) PO SCH (10:00)
[2020-06-04] MEDS: ATENOLOL 25 MG TABLET (FP) PO SCH ×2 (10:54→21:32)
[2020-06-04 11:01] LABS: HEMATOCRIT 42.2 % (32.4-45.2); HEMOGLOBIN 14.1 GM/dL (10.7-15.3); MCH 28.2 pg (25.7-33.7); MCHC 33.5 g/dl (32.0-36.0); MEAN CELL VOLUME 84.3 fl (80-96); PLATELET COUNT 316 K/MM3 (134-434); RBC 5.01 M/mm3 (3.60-5.2); RDW 14.4 % (11.6-15.6); WHITE BLOOD COUNT 6.7 K/mm3 (4.0-10.0)
[2020-06-04 11:05] LABS: POTASSIUM 4.3 mmol/L (3.5-5.1)
[2020-06-04 11:16] LABS: CALCIUM 9.1 mg/dL (8.5-10.1)
[2020-06-04 11:17] LABS: BLOOD UREA NITROGEN 6.7 mg/dL (7-18)
[2020-06-04 11:20] LABS: CREATININE 0.7 mg/dL (0.55-1.3)
[2020-06-04 11:22] LABS: BILIRUBIN,TOTAL 1.2 mg/dL (0.2-1)
[2020-06-04 11:23] LABS: TOT PROT 7.2 g/dl (6.4-8.2)
[2020-06-04] MEDS ORDERED: METHOCARBAMOL 500 MG TABLET PO PRN (12:21)
[2020-06-04] MEDS ORDERED: PT OWN MED DRAWER 7, Y5N ONE (19:58)
[2020-06-04] MEDS ORDERED: MASKS NR ONE (20:59)
[2020-06-04] MEDS: MELATONIN 5 MG TABLETS PO SCH (21:32)
[2020-06-04] MEDS: THIAMINE HCL 100 MG TABLET (FP) PO SCH (21:32)
[2020-06-04 22:21] VITALS: BP 119/70; PULSE 102
== END 2020-06-04 21:45 | disposition left against medical advice (07) | DRG 770 ==
LOC: YASAS 12:55 → Y5N 16:59
PROVIDERS: ADMIT Allergy & Immunology; ATTEND Allergy & Immunology
PROC: HZ42ZZZ Group Counseling for Substance Abuse Treatment, Cognitive-Behavioral (ICD-10-PCS; principal; 2020-06-03)
DX: F11.20 Opioid dependence, uncomplicated (principal); F17.210 Nicotine dependence, cigarettes, uncomplicated; F25.9 Schizoaffective disorder, unspecified; F41.9 Anxiety disorder, unspecified; F32.9 Major depressive disorder, single episode, unspecified; I10 Essential (primary) hypertension; J45.909 Unspecified asthma, uncomplicated; K21.9 Gastro-esophageal reflux disease without esophagitis; R63.4 Abnormal weight loss; Z68.22 Body mass index [BMI] 22.0-22.9, adult
CPT/HCPCS: 36415; 80053; 85027; 86780; C9803; U0003

== ENCOUNTER 2022-04-18 14:50 | Inpatient (IN) | payer OTHER ==
[2022-04-18 18:08] VITALS: BMI 25.7
[2022-04-18] MEDS ORDERED: BISMUTH SUBSALICYLATE 524 MG/30 ML PO PRN (18:53)
[2022-04-18] MEDS ORDERED: P-EPHED 60MG/TRIPROLIDI 2.5MG TABLET PO PRN (18:53)
[2022-04-18] MEDS ORDERED: DICYCLOMINE HCL 10 MG CAPSULE PO PRN (18:53)
[2022-04-18] MEDS ORDERED: NICOTINE 10 MG CARTRIDGE (INHALER) IH PRN (18:53)
[2022-04-18] MEDS ORDERED: NALOXONE HCL (KLOXXADO) 8 MG SPRAY NS PRN (18:53)
[2022-04-18] MEDS ORDERED: POLYETHYLENE GLYCOL (HEALTHYLAX) 3350 17 GM PACKET PO PRN (18:53)
[2022-04-18] MEDS ORDERED: MAGNESIUM HYDROX 2400MG/30ML ORAL SUSPENSION 30 ML CUP PO PRN (18:53)
[2022-04-18] MEDS ORDERED: NALOXONE HCL 0.4 MG/ML VIAL IM PRN (18:53)
[2022-04-18] MEDS ORDERED: MAG HYDROX/AL HYDROX/SIMETH 30 ML UNIT-DOSE CUP PO PRN (18:53)
[2022-04-18] MEDS ORDERED: IBUPROFEN 400 MG TABLET (FP) PO PRN (18:53)
[2022-04-18] MEDS ORDERED: LOPERAMIDE HCL 2 MG CAPSULE PO PRN (18:53)
[2022-04-18] MEDS ORDERED: ACETAMINOPHEN 325 MG TABLET (FP) PO PRN ×2 (18:53)
[2022-04-18] MEDS ORDERED: guaiFENesin 200 MG/10 ML 10 ML UNIT-DOSE CUPS PO PRN (18:53)
[2022-04-18] MEDS ORDERED: IBUPROFEN 600 MG TABLET (FP) PO PRN (18:53)
[2022-04-18] MEDS ORDERED: ONDANSETRON *ODT* 4 MG TABLET SL PRN (18:53)
[2022-04-18] MEDS ORDERED: BENZOCAINE/MENTHOL (CHLORASEPTIC ) LOZENGE MM PRN (18:53)
[2022-04-18] MEDS ORDERED: cloNIDine HCL 0.1 MG TABLET PO PRN (18:57)
[2022-04-18] MEDS: MELATONIN 5 MG TABLETS PO PRN ×2 (22:42→22:53)
[2022-04-18] MEDS: THIAMINE HCL 100 MG TABLET (FP) PO SCH (22:42)
[2022-04-18] MEDS: METHOCARBAMOL 500 MG TABLET PO PRN (23:01)
[2022-04-19] MEDS ORDERED: cloNIDine HCL 0.1 MG TABLET PO PRN (09:38)
[2022-04-19] MEDS ORDERED: methaDONE HCL 10 MG TABLET (FOR DETOX USE ONLY) PO ONE ×2 (09:38→11:37)
[2022-04-19 10:50] LABS: MCH 27.5 pg (25.7-33.7); MCHC 33.3 g/dl (32.0-36.0); MEAN CELL VOLUME 82.8 fl (80-96); MEAN PLT VOLUME 8.6 fl (7.5-11.1); PLATELET COUNT 303 10^3/uL (134-434); RBC 4.35 M/mm3 (3.60-5.2); RDW 14.7 % (11.6-15.6); WHITE BLOOD COUNT 5.3 K/mm3 (4.0-10.0)
[2022-04-19] MEDS ORDERED: methaDONE HCL 10 MG TABLET PO ONE (11:23)
[2022-04-19] MEDS: METHOCARBAMOL 500 MG TABLET PO PRN (11:42)
[2022-04-19] MEDS: PRENATAL VITAMINS W/ FOLIC ACID TABLET (FP) PO SCH (11:42)
[2022-04-19] MEDS: hydrOXYzine PAMOATE 25 MG CAPSULE (FP) PO PRN (11:43)
[2022-04-19 12:45] LABS: BLOOD UREA NITROGEN 8.5 mg/dL (7-18); CREATININE 0.5 mg/dL (0.55-1.3)
[2022-04-19 12:47] LABS: ALBUMIN 3.1 g/dl (3.4-5.0); CALCIUM 8.6 mg/dL (8.5-10.1)
[2022-04-19 12:48] LABS: BILIRUBIN,TOTAL 0.2 mg/dL (0.2-1); TOT PROT 6.2 g/dl (6.4-8.2)
[2022-04-19] MEDS ORDERED: FAMOTIDINE 20 MG TABLET PO PRN (13:46)
[2022-04-19] MEDS ORDERED: ALBUTEROL SO4 HFA INHALER IH PRN (13:46)
[2022-04-19] MEDS: amLODIPine BESYLATE 10 MG TABLET (FP) PO SCH (14:23)
[2022-04-19] MEDS: LISINOPRIL 20 MG TABLET PO SCH (14:23)
[2022-04-19] MEDS: hydrALAZINE HCL 25 MG TABLET (FP) PO SCH ×2 (14:39→22:15)
[2022-04-19] MEDS: ATENOLOL 25 MG TABLET (FP) PO SCH ×2 (14:39→22:15)
[2022-04-19] MEDS: MELATONIN 5 MG TABLETS PO PRN (22:15)
[2022-04-19] MEDS: THIAMINE HCL 100 MG TABLET (FP) PO SCH (22:15)
[2022-04-20] MEDS: hydrALAZINE HCL 25 MG TABLET (FP) PO SCH ×2 (05:25→14:28)
[2022-04-20] MEDS: hydrOXYzine PAMOATE 25 MG CAPSULE (FP) PO PRN (10:54)
[2022-04-20] MEDS: METHOCARBAMOL 500 MG TABLET PO PRN (10:55)
[2022-04-20] MEDS: PRENATAL VITAMINS W/ FOLIC ACID TABLET (FP) PO SCH (10:55)
[2022-04-20] MEDS: LISINOPRIL 20 MG TABLET PO SCH (10:56)
[2022-04-20] MEDS: amLODIPine BESYLATE 10 MG TABLET (FP) PO SCH (10:56)
[2022-04-20] MEDS: ATENOLOL 25 MG TABLET (FP) PO SCH (10:59)
[2022-04-20 13:51] VITALS: BP 124/63; PULSE 89; RESP 18; TEMP 97.7
[2022-04-21] MEDS ORDERED: methaDONE HCL 10 MG TABLET (FOR DETOX USE ONLY) PO ONE (10:00)
[2022-04-23] MEDS ORDERED: methaDONE HCL 10 MG TABLET (FOR DETOX USE ONLY) PO ONE (10:00)
== END 2022-04-20 14:24 | disposition left against medical advice (07) | DRG 770 ==
LOC: YASAS 14:50 → Y6N 19:04 → UNDOADMIN 19:04 → Y6N 19:43
PROVIDERS: ADMIT Allergy & Immunology; ATTEND Surgery
PROC: HZ2ZZZZ Detoxification Services for Substance Abuse Treatment (ICD-10-PCS; principal; 2022-04-18)
DX: F11.23 Opioid dependence with withdrawal (principal); F25.9 Schizoaffective disorder, unspecified; F32.A Depression, unspecified; F41.9 Anxiety disorder, unspecified; I10 Essential (primary) hypertension; J45.909 Unspecified asthma, uncomplicated; Z87.891 Personal history of nicotine dependence; Z86.59 Personal history of other mental and behavioral disorders; Z89.612 Acquired absence of left leg above knee; Z99.89 Dependence on other enabling machines and devices
CPT/HCPCS: 36415; 80053; 81025; 85027; 86780; C9803-CS; U0003; U0005

== ENCOUNTER 2022-08-23 14:56 | Inpatient (IN) | payer OTHER ==
[2022-08-23 17:18] VITALS: BMI 24.0
[2022-08-23] MEDS ORDERED: ACETAMINOPHEN 325 MG TABLET (FP) PO PRN (20:21)
[2022-08-23] MEDS ORDERED: POLYETHYLENE GLYCOL (HEALTHYLAX) 3350 17 GM PACKET PO PRN (20:21)
[2022-08-23] MEDS ORDERED: guaiFENesin 600 MG TABLET.ER (FP) PO PRN (20:21)
[2022-08-23] MEDS ORDERED: BENZOCAINE/MENTHOL (CHLORASEPTIC ) LOZENGE MM PRN (20:21)
[2022-08-23] MEDS ORDERED: NALOXONE HCL (KLOXXADO) 8 MG SPRAY NS PRN (20:21)
[2022-08-23] MEDS ORDERED: IBUPROFEN 600 MG TABLET (FP) PO PRN (20:21)
[2022-08-23] MEDS ORDERED: MAG HYDROX/AL HYDROX/SIMETH 30 ML UNIT-DOSE CUP PO PRN (20:21)
[2022-08-23] MEDS ORDERED: NALOXONE HCL 0.4 MG/ML VIAL IM PRN (20:21)
[2022-08-23] MEDS ORDERED: ONDANSETRON *ODT* 4 MG TABLET SL PRN (20:21)
[2022-08-23] MEDS ORDERED: MAGNESIUM HYDROX 2400MG/30ML ORAL SUSPENSION 30 ML CUP PO PRN (20:21)
[2022-08-23] MEDS ORDERED: DICYCLOMINE HCL 10 MG CAPSULE PO PRN (20:21)
[2022-08-23] MEDS ORDERED: IBUPROFEN 400 MG TABLET (FP) PO PRN (20:21)
[2022-08-23] MEDS ORDERED: BENZONATATE 200 MG CAPSULE PO PRN (20:21)
[2022-08-23] MEDS ORDERED: LOPERAMIDE HCL 2 MG CAPSULE PO PRN (20:21)
[2022-08-23] MEDS ORDERED: BISMUTH SUBSALICYLATE 524 MG/30 ML PO PRN (20:21)
[2022-08-23] MEDS ORDERED: cloNIDine HCL 0.1 MG TABLET PO PRN (20:25)
[2022-08-23] MEDS ORDERED: methaDONE HCL 10 MG TABLET (FOR DETOX USE ONLY) PO ONE (21:45)
[2022-08-23] MEDS: THIAMINE HCL 100 MG TABLET (FP) PO SCH (21:51)
[2022-08-23] MEDS ORDERED: MELATONIN 5 MG TABLETS PO SCH (22:00)
[2022-08-23] MEDS: chlordiazePOXIDE HCL 25 MG CAPSULE PO SCH (22:42)
[2022-08-23] MEDS: NICOTINE 10 MG CARTRIDGE (INHALER) IH PRN (22:45)
[2022-08-24] MEDS ORDERED: ALBUTEROL SO4 HFA INHALER IH PRN ×2 (05:38→09:14)
[2022-08-24] MEDS: chlordiazePOXIDE HCL 25 MG CAPSULE PO SCH ×4 (05:43→22:04)
[2022-08-24] MEDS: METHOCARBAMOL 500 MG TABLET PO PRN ×3 (05:45→22:09)
[2022-08-24] MEDS: PRENATAL VITAMINS W/ FOLIC ACID TABLET (FP) PO SCH (10:07)
[2022-08-24] MEDS: LISINOPRIL 20 MG TABLET PO SCH (10:08)
[2022-08-24] MEDS: NICOTINE 14 MG/24 HOURS TOPICAL PATCH TD SCH (10:09)
[2022-08-24] MEDS: amLODIPine BESYLATE 10 MG TABLET (FP) PO SCH (10:09)
[2022-08-24] MEDS: FAMOTIDINE 20 MG TABLET PO SCH (10:09)
[2022-08-24] MEDS: ATENOLOL 25 MG TABLET (FP) PO SCH ×2 (10:41→22:04)
[2022-08-24] MEDS: NICOTINE 10 MG CARTRIDGE (INHALER) IH PRN ×3 (11:25→22:10)
[2022-08-24] MEDS: chlordiazePOXIDE HCL 25 MG CAPSULE PO PRN (13:18)
[2022-08-24] MEDS: hydrALAZINE HCL 25 MG TABLET (FP) PO SCH ×2 (13:18→22:04)
[2022-08-24] MEDS: THIAMINE HCL 100 MG TABLET (FP) PO SCH (22:04)
[2022-08-24] MEDS: SUVOREXANT 10 MG TABLET PO PRN (22:05)
[2022-08-25] MEDS: NICOTINE 10 MG CARTRIDGE (INHALER) IH PRN ×4 (02:41→23:29)
[2022-08-25] MEDS: chlordiazePOXIDE HCL 25 MG CAPSULE PO PRN ×2 (02:49→17:28)
[2022-08-25] MEDS: chlordiazePOXIDE HCL 25 MG CAPSULE PO SCH ×4 (05:55→22:23)
[2022-08-25] MEDS: hydrALAZINE HCL 25 MG TABLET (FP) PO SCH (05:55)
[2022-08-25] MEDS ORDERED: methaDONE HCL 10 MG TABLET (FOR DETOX USE ONLY) PO ONE (10:00)
[2022-08-25] MEDS: FAMOTIDINE 20 MG TABLET PO SCH (10:25)
[2022-08-25] MEDS: PRENATAL VITAMINS W/ FOLIC ACID TABLET (FP) PO SCH (10:25)
[2022-08-25] MEDS: LISINOPRIL 20 MG TABLET PO SCH (10:26)
[2022-08-25] MEDS: NICOTINE 14 MG/24 HOURS TOPICAL PATCH TD SCH (10:27)
[2022-08-25] MEDS: ATENOLOL 25 MG TABLET (FP) PO SCH ×2 (10:27→22:22)
[2022-08-25] MEDS: amLODIPine BESYLATE 10 MG TABLET (FP) PO SCH (10:27)
[2022-08-25 12:04] LABS: HEMATOCRIT 37.7 % (32.4-45.2); HEMOGLOBIN 12.7 GM/dL (10.7-15.3); MCHC 33.6 g/dl (32.0-36.0); MEAN CELL VOLUME 80.5 fl (80-96); PLATELET COUNT 311 10^3/uL (134-434); RBC 4.68 M/mm3 (3.60-5.2); RDW 15.1 % (11.6-15.6); WHITE BLOOD COUNT 6.3 K/mm3 (4.0-10.0)
[2022-08-25 12:05] LABS: POTASSIUM 3.9 mmol/L (3.5-5.1)
[2022-08-25 12:15] LABS: ALBUMIN 3.6 g/dl (3.4-5.0); BLOOD UREA NITROGEN 11.7 mg/dL (7-18)
[2022-08-25 12:18] LABS: CREATININE 0.5 mg/dL (0.55-1.3)
[2022-08-25 12:20] LABS: BILIRUBIN,TOTAL 0.9 mg/dL (0.2-1); TOT PROT 6.7 g/dl (6.4-8.2)
[2022-08-25] MEDS: METHOCARBAMOL 500 MG TABLET PO PRN ×2 (17:31→23:28)
[2022-08-25] MEDS: THIAMINE HCL 100 MG TABLET (FP) PO SCH (22:22)
[2022-08-25] MEDS: SUVOREXANT 10 MG TABLET PO PRN (22:23)
[2022-08-26] MEDS ORDERED: chlordiazePOXIDE HCL 10 MG CAPSULE PO PRN
[2022-08-26] MEDS: chlordiazePOXIDE HCL 10 MG CAPSULE PO SCH ×4 (06:00→22:14)
[2022-08-26] MEDS: FAMOTIDINE 20 MG TABLET PO SCH (10:12)
[2022-08-26] MEDS: amLODIPine BESYLATE 10 MG TABLET (FP) PO SCH (10:12)
[2022-08-26] MEDS: PRENATAL VITAMINS W/ FOLIC ACID TABLET (FP) PO SCH (10:12)
[2022-08-26] MEDS: ATENOLOL 25 MG TABLET (FP) PO SCH ×2 (10:14→22:14)
[2022-08-26] MEDS: METHOCARBAMOL 500 MG TABLET PO PRN (10:14)
[2022-08-26] MEDS: NICOTINE 14 MG/24 HOURS TOPICAL PATCH TD SCH (10:14)
[2022-08-26] MEDS: NICOTINE 10 MG CARTRIDGE (INHALER) IH PRN ×3 (13:18→22:52)
[2022-08-26] MEDS: THIAMINE HCL 100 MG TABLET (FP) PO SCH (22:14)
[2022-08-26] MEDS: SUVOREXANT 10 MG TABLET PO PRN (22:14)
[2022-08-27] MEDS ORDERED: chlordiazePOXIDE HCL 10 MG CAPSULE PO SCH (05:00)
[2022-08-27] MEDS ORDERED: methaDONE HCL 10 MG TABLET (FOR DETOX USE ONLY) PO ONE (10:00)
[2022-08-27] MEDS: ATENOLOL 25 MG TABLET (FP) PO SCH (10:26)
[2022-08-27] MEDS: FAMOTIDINE 20 MG TABLET PO SCH (10:26)
[2022-08-27] MEDS: amLODIPine BESYLATE 10 MG TABLET (FP) PO SCH (10:26)
[2022-08-27] MEDS: PRENATAL VITAMINS W/ FOLIC ACID TABLET (FP) PO SCH (10:26)
[2022-08-27] MEDS: METHOCARBAMOL 500 MG TABLET PO PRN (10:27)
[2022-08-27] MEDS: NICOTINE 14 MG/24 HOURS TOPICAL PATCH TD SCH (10:30)
[2022-08-27 16:52] VITALS: BP 120/77; PULSE 68; RESP 17; TEMP 97.3
[2022-08-28] MEDS ORDERED: chlordiazePOXIDE HCL 10 MG CAPSULE PO ONE (05:00)
== END 2022-08-27 11:52 | disposition home or self-care (01) | DRG 773 ==
LOC: YASAS 14:56 → Y3N 20:01 → Y6N 20:31
PROVIDERS: ADMIT Allergy & Immunology; ATTEND Surgery
PROC: HZ2ZZZZ Detoxification Services for Substance Abuse Treatment (ICD-10-PCS; principal; 2022-08-23)
DX: F11.23 Opioid dependence with withdrawal (principal); F10.230 Alcohol dependence with withdrawal, uncomplicated; F31.9 Bipolar disorder, unspecified; F25.9 Schizoaffective disorder, unspecified; F19.280 Other psychoactive substance dependence with psychoactive substance-induced anxiety disorder; I10 Essential (primary) hypertension; J45.20 Mild intermittent asthma, uncomplicated; R76.11 Nonspecific reaction to tuberculin skin test without active tuberculosis; Z89.612 Acquired absence of left leg above knee; Z99.89 Dependence on other enabling machines and devices
CPT/HCPCS: 36415; 71046-TC-FY; 80053; 81025; 85027; 86780; 87635; 93005; 93010